=== PATIENT | female | born 1965 | race Caucasian/White ===

== ENCOUNTER → 2017-11-06 | Outpatient (CLI) | payer OTHER | LOC: RAD 09:33 | DX: Z12.31 Encounter for screening mammogram for malignant neoplasm of breast (principal) ==

== ENCOUNTER 2017-12-12 20:14 | Emergency (ER) | payer OTHER ==
[~2017-12-12] VITALS: Ht 165.1 cm; Wt 81.7 kg
[2017-12-12] MEDS ORDERED: TYLENOL325 M1 PO (21:23)
== END 2017-12-12 21:35 | disposition home or self-care (01) ==
LOC: ER 20:14
DX: S00.11XA Contusion of right eyelid and periocular area, initial encounter (principal); I10 Essential (primary) hypertension; E78.5 Hyperlipidemia, unspecified; K21.9 Gastro-esophageal reflux disease without esophagitis; E11.9 Type 2 diabetes mellitus without complications; F32.9 Major depressive disorder, single episode, unspecified; F41.9 Anxiety disorder, unspecified; J45.909 Unspecified asthma, uncomplicated; F17.200 Nicotine dependence, unspecified, uncomplicated; W22.8XXA Striking against or struck by other objects, initial encounter; Y92.89 Other specified places as the place of occurrence of the external cause; Y93.89 Activity, other specified; Y99.8 Other external cause status

== ENCOUNTER 2018-02-18 20:01 | Emergency (ER) | payer OTHER ==
[~2018-02-18] VITALS: Ht 165.1 cm; Wt 89.4 kg
[~2018-02-18 20:01] MED LIST: TYLENOL325 M1 PO
[2018-02-18] MEDS ORDERED: ASPIR 8181 MG PO (20:20)
[2018-02-18] MEDS ORDERED: LEXAPRO20 MG PO (20:21)
[2018-02-18] MEDS ORDERED: BENGAY GREASELE57 GM (20:21)
[2018-02-18] MEDS ORDERED: PLAVIX 75 MG TA75 M1 PO (20:21)
[2018-02-18] MEDS ORDERED: JANUVIA100 MG PO (20:22)
[2018-02-18] MEDS ORDERED: COZAAR 25 MG TA25 M1 PO (20:22)
[2018-02-18] MEDS ORDERED: METFORMIN HCL500 MG PO (20:23)
[2018-02-18] MEDS ORDERED: LYRICA 50 MG50 MG PO (20:23)
[2018-02-18] MEDS ORDERED: SIMVASTATIN40 MG PO (20:24)
[2018-02-18] MEDS ORDERED: PROTONIX40 M1 PO (20:24)
[2018-02-18] MEDS ORDERED: OXYBUTYNIN 5 MG5 M2 PO (20:24)
[2018-02-18] MEDS ORDERED: TRAMADOL 50 MG50 MG PO (20:25)
[2018-02-18] MEDS ORDERED: FLONASE 0.05%50 MCG NASAL (20:25)
[2018-02-18] MEDS ORDERED: SYMBICORT160 MCG/4. INH (20:25)
[2018-02-18] MEDS ORDERED: HYDROXYZINE HCL10 M2 PO (20:26)
[2018-02-18] MEDS ORDERED: MAPAP325 MG PO (20:27)
[2018-02-18] MEDS ORDERED: PROAIR HFA8.5 GM INH (20:29)
[2018-02-18] MEDS ORDERED: NYSTATIN100000 UNI SW&SWALLOW (21:00)
[2018-02-18] MEDS ORDERED: APAP650 PO (21:00)
[2018-02-18 22:47] VITALS: BP 166/87
== END 2018-02-18 22:49 | disposition home or self-care (01) ==
LOC: ER 20:01
DX: S02.2XXA Fracture of nasal bones, initial encounter for closed fracture (principal); B37.0 Candidal stomatitis; I10 Essential (primary) hypertension; E78.5 Hyperlipidemia, unspecified; K21.9 Gastro-esophageal reflux disease without esophagitis; E11.9 Type 2 diabetes mellitus without complications; F32.9 Major depressive disorder, single episode, unspecified; F41.9 Anxiety disorder, unspecified; J45.909 Unspecified asthma, uncomplicated; F43.10 Post-traumatic stress disorder, unspecified; F17.210 Nicotine dependence, cigarettes, uncomplicated; Z88.5 Allergy status to narcotic agent; W18.39XA Other fall on same level, initial encounter; Y93.89 Activity, other specified; Y92.89 Other specified places as the place of occurrence of the external cause; Y99.8 Other external cause status

== ENCOUNTER 2018-06-26 15:09 | Inpatient (IN) | payer OTHER ==
[~2018-06-26] VITALS: Ht 165.1 cm; Wt 96.6 kg
--- NOTE | ~2018-06-26 | HC ---
[facility] [place] [address] CONSULTATION Name: PEDRO LUIS POND Room #: 217-P ADM IN M.R.#: [id number] Admission: 06/26/18 ������������������ Attend Phys: Edward Aguayo MD Discharge: ������������������ Date of : 61 Report #: [id number] THIS REPORT FOR: //name// CC: Edward Turcios DATE OF SERVICE: 06/27/2018 HISTORY OF PRESENT ILLNESS: This is a 52-year-old female patient who indicated that she had an episode where she had weakness on the right side and speech difficulty. It came spontaneously. The symptoms were severe. The symptom has mostly resolved. She said the right arm was most affected, but she had at least some symptoms on the whole right side. She tells me that she did not have this kind of symptom before, but she told other physicians that she had a CT scan of the stroke. REVIEW OF SYSTEMS: Indicates the patient had some Ophthalmology problems. She still smokes. She lives in assisted living. She does not know why she is in assisted living. She says assisted living people give her the medication. She had an eye contusion at one time. She is on multiple medications and she cannot tell me why she is on all those medications. She does indicate she has dyslipidemia. REVIEW OF SYSTEMS: Was carried out and she has a history of diabetes, hypertension, GERD, posttraumatic stress disorder, asthma, anxiety and depression as I understand. The history of stroke is pretty questionable and is not definite. She continue to smoke. This was her relevant 14-point review of system. PAST MEDICAL HISTORY: Positive for question of stroke. FAMILY HISTORY: Negative for early age stroke. SOCIAL HISTORY: She continue to smoke. PHYSICAL EXAMINATION: Indicates she is alert, responsive. She still talks with somewhat slurred speech. It is difficult to tell what is new and what is old. Her memory and fund of knowledge is somewhat diminished. Cranial nerve examination 2-12 looks unremarkable. She has symmetrical strength, sensation, reflexes and tone in all 4 extremities. Reflexes are diminished in generalized fashion. I suspect that is her baseline. 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 Position sense, she takes a while, but she is able to tell me ultimately the position sense. Tone looks symmetrical. There are no cerebellar signs. I could not look at the fundus very well. Her blood pressure is 160/83 and pulse is 67, respiration is 18. [facility] [address] [place] [address] CONSULTATION Name: PEDRO LUIS POND Room #: 217-P [facility] IN .R.#: [id number] Admission: 06/26/18 ������������������ Attend Phys: Edward Aguayo MD Discharge: ������������������ Date of : 61 Report #: [id number] LABORATORY DATA: Indicate normal white count at 6.8, GFR is 65. Her CT angio and MRI was reviewed. She does have disease on multiple spots in the brain. 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 RECOMMENDATION: 1. I discussed with the patient that we will do an MRI of the C-spine since MRI of the brain is normal. 2. Stenosis of the middle cerebral artery needs to be managed conservatively. Her chances of having a stroke from that are pretty high, but stenting does not have any superiority than medical treatment. I strongly suggested that she must stop smoking. She needs to be on statin. She needs to lose weight, do exercise and eat healthy. We will check a few other blood testing, but the main management is going to be conservative. If these spells happen again, she needs to check her blood pressure and blood sugar at that time. Her blood pressure may have to be kept somewhat high because she does have stenosis in the middle cerebral artery and that can become symptomatic either with drop in blood pressure or with hypoglycemia. Thank you very much for this referral and if you have any questions, please feel free to contact me. Time spent 50 minutes, half the time counseling and coordinating. ��������������������������������������������� ���������������������������������������� By: ��������������������������������������������� 1514 0323 Matthew Mead MD /nt
[~2018-06-26 15:09] MED LIST changes: +APAP650 PO; +ASPIR 8181 MG PO; +BENGAY GREASELE57 GM; +COZAAR 25 MG TA25 M1 PO; +FLONASE 0.05%50 MCG NASAL; +HYDROXYZINE HCL10 M2 PO; +JANUVIA100 MG PO; +LEXAPRO20 MG PO; +LYRICA 50 MG50 MG PO; +MAPAP325 MG PO; +METFORMIN HCL500 MG PO; +NYSTATIN100000 UNI SW&SWALLOW; +OXYBUTYNIN 5 MG5 M2 PO; +PLAVIX 75 MG TA75 M1 PO; +PROAIR HFA8.5 GM INH; +PROTONIX40 M1 PO; +SIMVASTATIN40 MG PO; +SYMBICORT160 MCG/4. INH; +TRAMADOL 50 MG50 MG PO
[2018-06-26 15:27] LABS: ABSOLUTE NEUTROPHILS 6.3 thou/uL (1.4-8.2); BASOPHILS 0.5 % (0.0-2.0); EOSINOPHILS 0.6 % (0.0-3.0); HEMATOCRIT 37.9 % (37.0-47.0); HEMOGLOBIN 12.6 gm/dL (12.0-15.0); LYMPHOCYTES 19.2 % (24.0-44.0); MCH 29.2 pg (26.0-34.0); MCHC 33.2 g/dL (28.0-37.0); MCV 87.9 fL (80.0-100.0); MONOCYTES 3.8 % (1.0-8.0); PLATELET COUNT 172 thou/uL (150-400); POLYS 75.9 % (36.0-66.0); RBC 4.31 mil/uL (4.20-5.00); RDW 14.6 % (10.5-14.5); WBC 8.4 thou/uL (4.0-11.0)
[2018-06-26 15:34] LABS: CREATININE 1.2 mg/dL (0.6-1.0); POTASSIUM 5.2 mmol/L (3.5-5.1)
[2018-06-26 15:44] LABS: PROTIME 10.4 Seconds (9.3-11.4)
[2018-06-26 16:04] LABS: URINE BILIRUBIN NEGATIVE (Negative); URINE BLOOD NEGATIVE (Negative); URINE CLARITY SL CLOUDY; URINE COLOR YELLOW; URINE GLUCOSE-RANDOM* NEGATIVE (Negative); URINE KETONES NEGATIVE (Negative); URINE NITRITE-REFLEX NEGATIVE (Negative); URINE PROTEIN (DIPSTICK) 1+ (Negative); URINE UROBILINOGEN 0.2 E.U./dl (0.2-1.0)
[2018-06-26 16:07] LABS: URINE LEUKOCYTES-REFLEX 2+ (Negative)
[2018-06-26 16:15] LABS: SQUAMOUS >10 Many /LPF (0-3)
[2018-06-26 16:16] LABS: BACTERIA-REFLEX >30 Many /HPF (None Seen); CASTS None Seen /LPF (None Seen); CRYSTALS None Seen /LPF (None Seen); URINE RBC None Seen /HPF (0-2); URINE WBC-REFLEX 6-15 Few /HPF (0-5)
[2018-06-26 20:11] VITALS: BP 137/65
[2018-06-26 21:01] VITALS: BP 131/74
[2018-06-26] MEDS ORDERED: AMLODIPINE BESY10 MG PO (23:26)
[2018-06-26] MEDS ORDERED: ABILIFY10 MG PO (23:28)
[2018-06-26] MEDS ORDERED: ASPIRIN81 M2 PO (23:28)
[2018-06-26] MEDS ORDERED: MELOXICAM7.5 MG/5 M PO (23:29)
[2018-06-27 00:29] VITALS: BP 139/72
[2018-06-27 04:52] VITALS: BP 133/56
[2018-06-27 04:54] LABS: HEMATOCRIT 35.5 % (37.0-47.0); HEMOGLOBIN 11.9 gm/dL (12.0-15.0); MCH 29.2 pg (26.0-34.0); MCHC 33.4 g/dL (28.0-37.0); MCV 87.4 fL (80.0-100.0); RBC 4.06 mil/uL (4.20-5.00); RDW 14.4 % (10.5-14.5); WBC 6.8 thou/uL (4.0-11.0)
[2018-06-27 05:06] LABS: ANION GAP 7 mmol/L (7-16); BUN 21 mg/dL (7-18); CALCIUM 8.7 mg/dL (8.5-10.1); CHLORIDE 107 mmol/L (98-107); CHOLESTEROL 113 mg/dL (<200); CO2 29 mmol/L (21-32); CREATININE 0.9 mg/dL (0.6-1.0); GLUCOSE 117 mg/dL (74-106); HDL CHOLESTEROL 39 mg/dL (>40); LDL CHOLESTEROL 59 mg/dL (<100); POTASSIUM 4.3 mmol/L (3.5-5.1); SODIUM 143 mmol/L (136-145); TC:HDL 2.9 Ratio (Not establshd); TRIGLYCERIDE 75 mg/dL (<150); VLDL 15 mg/dL (<40)
--- NOTE | 2018-06-27 06:22 | NUR ---
PT ARRIVED ON UNIT AROUND 2100. AO X 4. DENIES HEADACHE, CHEST PAIN, NAUSEA AND VOMITING. ADM NIH SCALE SCOLE OF 4. Q4 NIH STROKE SCALE OF 2, AND 1 RESPECTIVELY. PT VOID BY BATHROOM. GOOD OUT PUT. ASSIST OF 1/ STAND BY WITH MOBILITY. WILL CONTINUE TO ASSESS FOR STROKE. MRI OF HEAD SCHEDULE THIS AM. VITALS STABLE. OTHER ASSESSMENTS DOCUMENTED. WILL CONTINUE TO FOLLOW POC.
[2018-06-27 08:37] VITALS: BP 145/55
--- NOTE | 2018-06-27 09:34 | EKG ---
[address] [place] [place] [address] ELECTROCARDIOGRAM REPORT Name: DEANA PONDAURORA Lorenz Room #: 217-P ADM IN M.R.#: [id number] ������������������ Admission: 06/26/18 ������������������ Attend Phys: Edwadr Aguayo MD Discharge: ������������������ Date of : 61 Report #: [id number] ����������������������������������������������������������������� [id number] THIS REPORT FOR: //name// [facility] ED Test Date: 2018-06-26 Test Time: 15:37:23 Pat Name: PEDRO LUIS POND Department: Room: 217 Gender: F Board Layer: MERVAT : 1965 Requested By: Radha Hobbs Order Number: [id number] MD: Reza Rubio Measurements Intervals [place] Rate: 73 P: 60 WV: 181 QRS: 19 QRSD: 99 T: 33 QT: 383 QTc: 422 Interpretive Statements Sinus rhythm Probable left atrial enlargement No previous ECG available for comparison Electronically Signed On 06-27-2018 9:34:51 CDT by Reza Rubio [email or web address] ��������������������������������������������� <ELECTRONICALLY SIGNED> ���������������������������������������� By: Reza Rubio MD ��������������������������������������������� 06/27/18 0934 1537 1537 Reza Rubio MD /THEODORA
[2018-06-27 11:49] VITALS: BP 160/83
[2018-06-27 15:26] VITALS: BP 146/106
[2018-06-27 16:06] LABS: GLYCOHEMOGLOBIN (HGB A1C) 7.3 % (4.8-5.6)
--- NOTE | 2018-06-27 16:40 | NUR ---
Case opened to follow for dc planning. [employer]urbine Room Attendant visited with the pt at bedside. She is alert and ox3. She lives in the [facility] apts at [facility]. They provide her meals and medications. She is indep with gait and adl's. She admitted with rt sided weakness and stroke workup negative so far. [facility] confirms pt lives there and is indep in the RCF II. She has no emergency contacts and is her own decision maker. [facility] can provide a ride [place]. Will follow along should therapy recommend any f/u care or dme at [place]. The pt reports she smokes but is trying to quit.
[2018-06-27 19:20] VITALS: BP 154/68
[2018-06-28 04:34] VITALS: BP 157/67
--- NOTE | 2018-06-28 05:17 | NUR ---
RECEIVED PT'S CARE AT 1925; PT. ON BED; AOX4; NO C/O PAIN; DURING ASSESSMENT PT. REQUESTED PRN PAIN MEDICATION DUE TO BACK PAIN; PRN PAIN MEDICATION GIVEN; DURING PAIN RE-ASSESSMENT PT. SLEEPING; EDUCATED ABOUT FALL PREVENTIONS; ST. UNDERSTANDING; SCD'S ON AT MIDNIGHT; URINE SAMPLE COLLECTED; ABLE TO REST THROUGH THE NIGHT; CALLED APROPIATELY; ASSESSMENT CHARGED; FOLLOWING POC; WILL PASS ON REPORT.
[2018-06-28 05:20] LABS: TSH 2.992 uIU/mL (0.358-3.740)
[2018-06-28 07:50] VITALS: BP 153/66
[2018-06-28 09:38] VITALS: BP 153/66
--- NOTE | 2018-06-28 10:32 | 2DMMODE ---
[facility] [address] [place] [address] 2 D/M-MODE ECHOCARDIOGRAM Name: ANGLE PONDA Gerda Room #: 217-P ADM IN M.R.#: [id number] ������������� Admission: 06/26/18 ������������� Attend Phys: Edward Aguayo MD Discharge: ��� ������������� ��� Date of : 61 Date of Service: 06/28/18 1032 �� Report #: [id number] �������� ��������������������������������������������[id number] THIS REPORT FOR: //name// APPROVED REPORT Study performed: 06/28/2018 10:00:05 EXAM: Comprehensive 2D, Doppler, and color-flow Echocardiogram Patient Location: Echo lab Room #: [facility] Status: routine BSA: 2.03 HR: 64 bpm BP: 157/67 mmHg Rhythm: NSR Other Information Study Quality: Good Indications TIA. HX: DM, HTN. Echo Enhancing Agent Indication: Rule out Shunt Agent(s) / Amount(s) Used: Agitated Saline 6 cc 2D Dimensions RVDd: 38.50 mm IVSd: 10.67 (7-11mm) LVOT Diam: 21.01 (18-24mm) LVDd: 47.87 mm PWd: 9.77 (7-11mm) Ascending Ao: 30.22 (22-36mm) LVDs: 32.82 (25-40mm) Aortic Root: 29.22 mm Volumes Left Atrial Volume (Systole) Single Plane 4CH: 58.52 mL Single Plane 2CH: 43.28 mL LA ESV Index: 26.00 mL/m2 Aortic Valve AoV Peak Antnoi.: 1.39 m/s AO Peak Gr.: 7.70 mmHg LVOT Max P.88 mmHg LVOT Max V: 0.98 m/s SURY Vmax: 2.46 cm2 [facility] [address] [place] [address] 2 D/M-MODE ECHOCARDIOGRAM Name: PEDRO LUIS POND Gerda Room #: 217-P [facility] IN ..#: [id number] ������������� Admission: 06/26/18 ������������� Attend Phys: Edward Aguayo MD Discharge: ��� ������������� ��� Date of : 61 Date of Service: 06/28/18 1032 �� Report #: [id number] �������� ��������������������������������������������[id number] Mitral Valve E/A Ratio: 0.9 MV Decel. Time: 200.06 ms MV E Max Antoni.: 0.66 m/s MV A Antoni.: 0.77 m/s MV PHT: 58.02 ms IVRT: 72.66 ms Pulmonary Valve PV Peak Antoni.: 1.20 m/s PV Peak Gr.: 5.74 mmHg Pulmonary Vein P Vein S: 0.54 m/s P Vein A: 0.31 m/s P Vein D: 0.38 m/s P Vein A Dur.: 143.0 msec P Vein S/D Ratio: 1.42 Tricuspid Valve TR Peak Antoni.: 2.22 m/s RAP Estimate: 5.00 mmHg TR Peak Gr.: 19.79 mmHg PA Pressure: 25.00 mmHg Left Ventricle The left ventricle is normal size. There is normal LV segmental wall motion. Moderate basal septal hypertrophy is present. Left ventricular systolic function is normal. LVEF is 60-65%. Mild diastolic dysfunction is present (impaired relaxation pattern). Right Ventricle The right ventricle is normal size. The right ventricular systolic function is normal. Atria The left atrium size is normal. No shunting noted by contrast bubble injection. The right atrium size is normal. Aortic Valve The aortic valve is normal in structure. No aortic regurgitation is present. There is no aortic valvular stenosis. Mitral Valve The mitral valve is normal in structure. Mild mitral regurgitation. Tricuspid Valve The tricuspid valve is normal in structure. Trace to mild tricuspid [facility] [address] [place] [address] 2 D/M-MODE ECHOCARDIOGRAM Name: ANGLE PONDTre Lorenz Room #: 217-P [facility] IN [facility]#: [id number] ������������� Admission: 06/26/18 ������������� Attend Phys: Edward Aguayo MD Discharge: ��� ������������� ��� Date of : 61 Date of Service: 06/28/18 1032 �� Report #: [id number] �������� ��������������������������������������������[id number] regurgitation. Estimated PAP 25mmHg. Pulmonic Valve The pulmonary valve is normal in structure. There is no pulmonic valvular regurgitation. Great Vessels The aortic root is normal in size. The ascending aorta is normal in size. IVC is normal in size and collapses >50% with inspiration. Pericardium There is no pericardial effusion. <Conclusion> The left ventricle is normal size. Moderate basal septal hypertrophy is present. Left ventricular systolic function is normal. Mild diastolic dysfunction is present (impaired relaxation pattern). The right ventricle is normal size. The left atrium size is normal. No shunting noted by contrast bubble injection. The right atrium size is normal. The aortic valve is normal in structure. Mild mitral regurgitation. Trace to mild tricuspid regurgitation. Estimated PAP 25mmHg. ��������������������������������������������� <ELECTRONICALLY SIGNED> ���������������������������������������� By: Reza Rubio MD ��������������������������������������������� 06/28/18 [phone] Reza Rubio MD /INF
[2018-06-28] MEDS ORDERED: NICOTINE TRANSD21 M1 TRANSDERM (10:36)
--- NOTE | 2018-06-28 12:51 | NUR ---
Pt dc'd back to her apt at [facility]. Transport arranged thru [facility] however it was then cancelled as the pt had arranged for her dtr to take her. Her dtr [place] came to pick her up and take her back. Pt dc'd with a copy of her dc summary, instructions, and a new script. The facility was notified that the pt was being transported by family. Dtr [place] provided her number for the chart, . [facility] updated and they are expecting the pt.
--- NOTE | 2018-06-28 13:56 | NUR ---
PT DISCHARGED BACK TO PREVIOUS LIVING FACILITY. CVA R/O. VSS. DENIES PAIN AND SOA. BS WNL. DISCHARGE PAPERWORK REVIEWED WITH PT AND SENT WITH MEDICAL RECORD BACK TO FACILITY. ATEMPTED TO CALL REPORT BUT NO ANSWER. VOICEMAIL LEFT. WILL MAKE 2 MORE ATTEMPTS. MEDICAL TRANSPORTATION WAS ARRANGED BUT PT FAMILY MEMBER CAME FOR VISITATION AND PT WANTED TO LEAVE WITH HER. PARKING METER COLLECTOR APPROVED OF NEW TRANSPORTATION PLAN. IV OUT, TELE OFF. NURSING STAFF ESCORTED PT OUT TO PERSONAL VEHICLE VIA WHEELCHAIR.
== END 2018-06-28 12:49 | DRG 305 ==
LOC: ER 15:09 → EROBS 19:28 → 2N 20:30
PROVIDERS: Emergency Medicine; Nurse Practitioner Family; Psychiatry & Neurology Neuromuscular Medicine; ADMIT Hospitalist
DX: I10 Essential (primary) hypertension (principal); E78.5 Hyperlipidemia, unspecified; K21.9 Gastro-esophageal reflux disease without esophagitis; E11.51 Type 2 diabetes mellitus with diabetic peripheral angiopathy without gangrene; J45.909 Unspecified asthma, uncomplicated; F32.9 Major depressive disorder, single episode, unspecified; F41.9 Anxiety disorder, unspecified; F43.10 Post-traumatic stress disorder, unspecified; F17.210 Nicotine dependence, cigarettes, uncomplicated; Z71.6 Tobacco abuse counseling; Z89.411 Acquired absence of right great toe; Z89.421 Acquired absence of other right toe(s); Z79.51 Long term (current) use of inhaled steroids; Z79.82 Long term (current) use of aspirin; Z79.84 Long term (current) use of oral hypoglycemic drugs; Z79.899 Other long term (current) drug therapy; Z88.5 Allergy status to narcotic agent; Z88.8 Allergy status to other drugs, medicaments and biological substances
CPT/HCPCS: 10081

== ENCOUNTER 2018-11-28 03:15 | Emergency (ER) | payer OTHER ==
[~2018-11-28] VITALS: Ht 165.1 cm; Wt 103.7 kg
[~2018-11-28 03:15] MED LIST changes: +ABILIFY10 MG PO; +AMLODIPINE BESY10 MG PO; +ASPIRIN81 M2 PO; +MELOXICAM7.5 MG/5 M PO; +NICOTINE TRANSD21 M1 TRANSDERM
[2018-11-28] MEDS ORDERED: JANUVIA100 MG PO (03:36)
[2018-11-28] MEDS ORDERED: CHANTIX0.5 MG PO (03:37)
[2018-11-28] MEDS ORDERED: ABILIFY 5 MG TAB5 M1 PO (03:38)
[2018-11-28] MEDS ORDERED: NICOTINE TRANSD21 M1 (03:40)
[2018-11-28 04:16] LABS: ABSOLUTE NEUTROPHILS 5.7 thou/uL (1.4-8.2); BASOPHILS 0.5 % (0.0-2.0); EOSINOPHILS 1.1 % (0.0-3.0); HEMATOCRIT 40.2 % (37.0-47.0); LYMPHOCYTES 15.9 % (24.0-44.0); MCH 28.8 pg (26.0-34.0); MCHC 32.4 g/dL (28.0-37.0); MCV 88.9 fL (80.0-100.0); MONOCYTES 8.3 % (1.0-8.0); PLATELET COUNT 117 thou/uL (150-400); POLYS 74.2 % (36.0-66.0); RBC 4.52 mil/uL (4.20-5.00); RDW 13.4 % (10.5-14.5); WBC 7.7 thou/uL (4.0-11.0)
[2018-11-28 04:19] LABS: CALCIUM 8.4 mg/dL (8.5-10.1); POTASSIUM 3.5 mmol/L (3.5-5.1)
[2018-11-28 04:25] LABS: ALBUMIN 3.2 g/dL (3.4-5.0); DIRECT BILIRUBIN 0.7 mg/dL (<0.1-0.3); TOTAL BILIRUBIN 1.4 mg/dL (<0.1-1.0); TOTAL PROTEIN 6.5 g/dL (6.4-8.2)
[2018-11-28] MEDS ORDERED: BENTYL 20 MG TA20 M1 PO (06:05)
[2018-11-28 06:50] VITALS: BP 169/82
== END 2018-11-28 06:30 | disposition home or self-care (01) ==
LOC: ER 03:15
PROVIDERS: Emergency Medicine
DX: R19.7 Diarrhea, unspecified (principal); R10.13 Epigastric pain; I10 Essential (primary) hypertension; E11.9 Type 2 diabetes mellitus without complications; J45.909 Unspecified asthma, uncomplicated; E78.5 Hyperlipidemia, unspecified; K21.9 Gastro-esophageal reflux disease without esophagitis; F41.9 Anxiety disorder, unspecified; F17.210 Nicotine dependence, cigarettes, uncomplicated; Z86.73 Personal history of transient ischemic attack (TIA), and cerebral infarction without residual deficits; Z88.5 Allergy status to narcotic agent; Z88.8 Allergy status to other drugs, medicaments and biological substances